=== PATIENT | male | born 1960 | race Hispanic/Latino ===

== ENCOUNTER 2021-09-16 12:13 | Outpatient (CLI) | payer OTHER | END 2021-09-16 12:14 | disposition home or self-care (01) | LOC: TBSIIMAG 12:13 | PROVIDERS: ATTEND Surgery | DX: M47.26 Other spondylosis with radiculopathy, lumbar region (principal); M48.07 Spinal stenosis, lumbosacral region | CPT/HCPCS: 72120; 72148 ==